=== PATIENT | female | born 1990 | race Two or more races ===

== ENCOUNTER 2025-07-20 10:36 | Inpatient (IN) | payer OTHER ==
[~2025-07-20] VITALS: Ht 149.9 cm; Wt 69.3 kg
--- NOTE | 2025-07-20 11:00 | ED.PDOC ---
History of Present Illness HPI Comments This is a 35-year-old female without any significant past medical history presented to the ED with a chief complaint of right lower quadrant pain and nausea since 5:00 a.m. this morning. The patient states that light lower quadrant pain which is a sharp pain, 8/10, localized, aggravated during sneezing, standing and moving without any relieving factors and associated with nausea and dizziness. She denies fever, chills, shortness of breath, vomiting, dysuria, hematuria or any change in bowel habit. Chief Complaint: Abdominal Pain Time Seen by MD: 10:41 Allergies: Coded Allergies: NO KNOWN ALLERGIES (Unverified , 07/20/25) Information Source: Patient Mode of Arrival: Ambulatory Severity: Moderate Timing: Hours Duration: Since onset Prehospital treatment: None Past Medical History PAST MEDICAL HISTORY: Denies Surgical History: Denies all surgeries POSTING SPECIALIST History: Denies all POSTING SPECIALIST Hx Family History Family History: Reviewed,noncontributory to illness Social History Smoker: Non-Smoker Alcohol: Occasionally Drugs: Denies Drug Use Lives In: Home Constitutional: denies: chills, diaphoresis, fatigue, fever, malaise, sweats, weakness, others EENTM: denies: blurred vision, double vision, ear bleeding, ear discharge, ear drainage, ear pain, ear ringing, eye pain, eye redness, hearing loss, mouth pain, mouth swelling, nasal discharge, nose bleeding, nose congestion, nose pain, photophobia, tearing, throat pain, throat swelling, voice changes, others Respiratory: denies: cough, hemoptysis, orthopnea, SOB at rest, shortness of breath, SOB with excertion, stridor, wheezing, others Cardiovascular: denies: chest pain, dizzy spells, diaphoresis, Dyspnea on exertion, edema, irregular heart beat, left arm pain, lightheadedness, palpitations, PND, syncope, others Gastrointestinal: reports: abdominal pain, nausea; denies: abdomen distended, blood streaked bowels, constipated, diarrhea, dysphagia, difficulty swallowing, hematemesis, melena, poor appetite, poor fluid intake, rectal bleeding, rectal pain, vomiting, others Genitourinary: denies: abnormal vagina bleeding, burning, dyspareunia, dysuria, flank pain, frequency, hematuria, incontinence, pain, , vagina discharge, urgency, others Neurological: reports: dizziness; denies: fainting, headache, left sided numbness, left sided weakness, numbness, paresthesia, pre-existing deficit, right sided numbness, right sided weakness, seizure, speech problems, tingling, tremors, weakness, others Musculoskeletal: denies: back pain, gout, joint pain, joint swelling, muscle pain, muscle stiffness, neck pain, others Integumetry: denies: bruises, change in color, change in hair/nails, dryness, laceration, lesions, lumps, rash, wounds, others Allergic/Immunocompromised: denies: Difficulty Healing, Frequent Infections, Hives, Itching, others Hematologic/Lymphatic: denies: anemia, blood clots, easy bleeding, easy bruising, swollen glands, others Endocrine: denies: excessive hunger, excessive sweating, excessive thirst, excessive urination, flushing, intolerance to cold, intolerance to heat, unexplained weight gain, unexplained weight loss, others Psychiatric: denies: anxiety, bipolar disorder, depression, hopeless, panic disorder, schizophrenia, sleepless, suicidal, others Physical Exam General Appearance: Mild Distress HEENT: Normal ENT Inspection, Pharynx Normal, TMs Normal Neck: Full Range of Motion, Non-Tender, Normal, Normal Inspection Respiratory: Chest Non-Tender, Lungs Clear, No Accessory Muscle Use, No Respiratory Distress, Normal Breath Sounds Cardiovascular: No Edema, No JVD, No Murmur, No Gallop, Normal Peripheral Pulses, Regular Rate/Rhythm Breast Exam: Deferred Gastrointestinal: Guarding, No Organomegaly, No Pulsatile Mass, Normal Bowel Sounds, RLQ, Tenderness Genitalia: Deferred Pelvic: Deferred Rectal: Deferred Extremities: No calf tenderness, Normal capillary refill, Normal inspection, Normal range of motion, Non-tender, No pedal edema Neurologic: Alert, hospital medical assistant II-XII nml as Tested, No Motor Deficits, Normal Affect, Normal Mood, No Sensory Deficits Cerebellar Function: NOT DONE Reflexes: NOT DONE Skin: NOT DONE Peripheral Pulses: 2+ carotid (R), 2+ carotid (L), 2+ femoral (R), 2+ femoral (L), 2+ dorsalis pedis (R), 2+ dorsalis pedis (L), 2+ Radial (R), 2+ Radial (L), 2+ Brachial (R), 2+ Brachial (L) Lymphatic: NOT DONE Was a procedure done? Was a procedure done?: No Differential Dx Considerations may include: Appendicitis, gastroenteritis, diverticulitis, IBS, ovarian torsion, salpingitis, PID X-Ray, Labs, Meds, VS Vital Signs Date Time Temp Pulse Resp B/P (MAP) Pulse Ox O2 Delivery O2 Flow Rate FiO2 07/20/25 14:37 98.2 99 16 122/81 (95) 98 98.2 07/20/25 12:32 76 18 132/64 07/20/25 12:08 97.9 104 18 131/61 (84) 98 97.9 07/20/25 12:08 104 18 98 Room Air 07/20/25 11:51 104 18 131/61 07/20/25 10:38 97.9 104 18 131/61 98 97.9 Lab Test 07/20/25 11:55 07/20/25 10:25 Range/Units Urine Color Yellow Yellow Urine Clarity Turbid H Clear Urine pH 6.0 5.0-9.0 Urine Specific [place] 1.023 1.001-1.035 Urine Protein Trace H Negative Urine Ketones Trace Negative Urine Blood 3+ H Negative /uL Urine Nitrite Negative Negative Urine Bilirubin Negative Negative Urine Urobilinogen Normal Negative mg/dL Urine Leukocyte Esterase Trace Negative /uL Urine RBC 57 0 - 4 /hpf Urine Microscopic WBC 3 0-5 /HPF Urine Squamous Epithelial Cells Mod <5 /hpf Urine Bacteria Few H None Seen /hpf Urine Mucus Few None Seen Urine Glucose Normal Normal mg/dL Urine Test Negative Negative White Blood Count 15.9 H 4.4-10.8 10^3/uL Red Blood Count 4.92 4.0-5.20 10^6/uL Hemoglobin 15.3 12.2-16.2 g/dL Hematocrit 45.3 36.0-46.0 % Mean Corpuscular Volume 92.2 80.0-100.0 fL Mean Corpuscular Hemoglobin 31.1 28.0-32.0 pg Mean Corpuscular Hemoglobin Concent 33.8 32.0-36.0 g/dL Red Cell Distribution Width 12.3 11.8-14.3 % Platelet Count 408 140-450 10^3/uL Mean Platelet Volume 7.3 6.9-10.8 fL Neutrophils (%) (Auto) 77.7 37.0-80.0 % Lymphocytes (%) (Auto) 14.2 10.0-50.0 % Monocytes (%) (Auto) 7.2 0.0-12.0 % Eosinophils (%) (Auto) 0.6 0.0-7.0 % Basophils (%) (Auto) 0.3 0.0-2.0 % Neutrophils # (Auto) 12.3 H 1.6-8.6 10 ^3/uL Lymphocytes # (Auto) 2.3 0.4-5.4 10 ^3/uL Monocytes # (Auto) 1.1 0-1.3 10 ^3/uL Eosinophils # (Auto) 0.1 0-0.8 10 ^3/uL Basophils # (Auto) 0.1 0-0.2 10 ^3/uL Nucleated Red Blood Cells 0.1 % Sodium Level 137 136-145 mmol/L Potassium Level 3.7 3.5-5.1 mmol/L Chloride Level 101 98-107 mmol/L Carbon Dioxide Level 27 20-31 mmol/L Anion Gap 9 5-15 Blood Urea Nitrogen < 5 L 9-23 mg/dL Creatinine 0.84 0.550-1.02 mg/dL Glomerular Filtration Rate Calc 93 >90 mL/min BUN/Creatinine Ratio 6.0 L 10.0-20.0 Serum Glucose 97 74-106 mg/dL Calcium Level 9.5 8.7-10.4 mg/dL Total Bilirubin 0.7 0.2-1.0 mg/dL Aspartate Amino Transferase (AST) 20 13-40 U/L Alanine Aminotransferase (ALT) 28 7-40 U/L Alkaline Phosphatase 58 46-116 U/L Total Protein 8.0 5.7-8.2 g/dL Albumin 4.8 3.2-4.8 g/dL Lipase 32 12-53 U/L Current Medications Medications (Trade) Dose Ordered Sig/Seamus Route Start Time Stop Time Status Last Admin Morphine Sulfate 2 mg ONCE ONCE IV 07/20/25 11:00 07/20/25 11:02 DC 07/20/25 11:51 Sodium Chloride 1,000 ml @ 125 mls/hr Q8H ONCE IV 07/20/25 14:45 07/20/25 22:44 07/20/25 15:19 Ceftriaxone Sodium 50 ml @ 100 mls/hr ONCE ONCE IV 07/20/25 14:45 07/20/25 15:14 DC 07/20/25 15:19 X-Ray, Labs, Meds, VS Comment Exam: CT CT AB PEL WO CON-NO ORAL OR IV History: Right lower quadrant pain Comparison Study: None TECHNIQUE: Multidetector CT of the abdomen was performed from lung bases to pubic symphysis. Imaging was performed without IV contrast. Axial, coronal and sagittal multiplanar reformats were obtained from the axial data set by the technologist. Radiation Dose Information: CT Dose: CTDI volume is 7.28 mGy. Dose-length product is 347.71 mGy*cm FINDINGS: Evaluation of solid organs is limited due to lack of intravenous contrast use. Findings: Lung Bases: No acute or significant lung base finding. Normal heart size. No pleural or pericardial effusion. Liver: The liver is normal in size. No focal lesions. Hepatic steatosis. Gallbladder and Biliary Tree: Unremarkable Spleen: Unremarkable Pancreas: The pancreas is grossly normal in appearance. Adrenal Glands: Unremarkable Kidneys: Kidneys are grossly normal without calculi or hydronephrosis. Bladder: Grossly unremarkable for degree of distention. Bowel: The stomach is grossly normal in appearance. Small bowel and colon are normal in caliber and distribution. The appendix is 13 mm with periappendiceal inflammatory changes findings consistent with appendicitis. Appendix visualized series 2 images 49-53. Ascites: Absent Lymphadenopathy: No mesenteric, retroperitoneal or periportal lymphadenopathy. Abdominal Wall and Mesentery: Unremarkable. Vasculature: The visualized abdominal aorta is normal in size and caliber. Evaluation of abdominal and pelvic vessels is limited due to lack of intravenous contrast. Pelvic Organs: Unremarkable Musculoskeletal: No aggressive focal bony lesions, acute fractures or dislocati on. Soft tissues: Unremarkable IMPRESSION: 1. Findings worrisome for appendicitis. 2. Inflammatory changes; no free air 3. Hepatic steatosis CRITICAL FINDINGS Critical Result: APPENDICITIS Images Reviewed?: Images reviewed and evaluated by me Time of 1ST Reevaluation: 14:52 Reevaluation 1ST: Improved Patient Education/Counseling: Diagnosis, Treatment, Prognosis, Need For Follow Up Family Education/Counseling: Diagnosis, Treatment, Prognosis, Need For Follow Up Comments I, Arielle Huggins MD, attest that I was present and participated in the critical and casillas portions of the exam and agree with the resident physician's findings and treatment plan Patient has a appendicitis shown on CAT scan. She will be admitted to the hospital surgery will be consulted #[id number] Dr Jesus from [facility] called and provided the authorization SEPSIS Sepsis Screen Date sepsis recognized/suspect: Jul 20, 2025 Time Sepsis recognized/suspect: 1039 Recent Procedure: No On Antibiotic Therapy: No Respiratory Rate >20: No Heart Rate >90: Yes Temp<36 C (96.8 F) or >38.3 C: No SBP <90 or MAP <65 mmHG: No New Acute Mental Status Change: No Is the patient on CPAP, BIPAP,: No Physician Orders Ct Ab Pel Wo Con-No Oral Or Iv (07/20/25 10:49) Sodium Chloride 0.9% (07/20/25 14:45) * Surgical Consult (07/20/25 ) PTPTT (07/20/25 15:04) Obtain Consent For: (07/20/25 15:04) Type And Screen (07/20/25 15:05) Npo (Nothing By Mouth) Diet (07/20/25 Dinner) D5w/Sod Chl 0.45%/Kcl 20meq (07/20/25 15:15) Vital Signs Date Time Temp Pulse Resp B/P (MAP) Pulse Ox O2 Delivery O2 Flow Rate FiO2 07/20/25 14:37 98.2 99 16 122/81 (95) 98 98.2 07/20/25 12:32 76 18 132/64 07/20/25 12:08 97.9 104 18 131/61 (84) 98 97.9 07/20/25 12:08 104 18 98 Room Air 07/20/25 11:51 104 18 131/61 07/20/25 10:38 97.9 104 18 131/61 98 97.9 Laboratory Tests Test 07/20/25 10:25 White Blood Count 15.9 10^3/uL (4.4-10.8) H Medications Medications Dose Ordered Sig/Seamus Route Start Time Stop Time Status Last Admin Dose Admin Ceftriaxone Sodium 50 ml @ 100 mls/hr ONCE ONCE IV 07/20/25 14:45 07/20/25 15:14 DC 07/20/25 15:19 Morphine Sulfate 2 mg ONCE ONCE IV 07/20/25 11:00 07/20/25 11:02 DC 07/20/25 11:51 Sodium Chloride 1,000 ml @ 125 mls/hr Q8H ONCE IV 07/20/25 14:45 07/20/25 22:44 07/20/25 15:19 Departure 1 Departure Time of Disposition: 14:34 Impression: Primary Impression: Appendicitis Qualified Codes: K35.30 - Acute appendicitis with localized peritonitis, without perforation or gangrene Disposition: ADMITTED INPATIENT Admit to: Med Surg Condition: Serious Critical Care Note Critical Care Time?: Yes (45 min-critical care time only) Critical care comment: Due to concerns for patients condition deteriorating, the care required my highest level of attention and readiness to intervene. I assessed the patient, reviewed the medical records, ordered the appropriate tests and treatments, then reassessed for results and responsiveness. I communicated with medical personnel and consultants and formulated a plan of care. Total critical care time excludes any procedures Stability Stability form required: DEEPAK Shetty RESIDENT Jul 20, 2025 11:00 ARIELLE HUGGINS MD Jul 20, 2025 14:35
[2025-07-20 11:27] LABS: Hematocrit 45.3 % (36.0-46.0); Hemoglobin 15.3 g/dL (12.2-16.2); Mean Corpuscular Hemoglobin 31.1 pg (28.0-32.0); Mean Corpuscular Volume 92.2 fL (80.0-100.0); Nucleated Red Blood Cells % 0.1 %
[2025-07-20 11:37] LABS: Alanine Aminotransferase 28 U/L (7-40); Alkaline Phosphatase 58 U/L (46-116); Anion Gap 9 (5-15); Calcium 9.5 mg/dL (8.7-10.4); Carbon Dioxide 27 mmol/L (20-31); Chloride 101 mmol/L (98-107); Glucose 97 mg/dL (74-106); Lipase 32 U/L (12-53); Potassium 3.7 mmol/L (3.5-5.1); Sodium 137 mmol/L (136-145); Total Protein 8.0 g/dL (5.7-8.2)
[2025-07-20 11:38] LABS: Albumin 4.8 g/dL (3.2-4.8); BUN/Creatinine Ratio 6.0 (10.0-20.0); Bilirubin, Total 0.7 mg/dL (0.2-1.0); Blood Urea Nitrogen < 5 mg/dL (9-23)
[2025-07-20] MEDS: MORPHINE SULFATE INJ 2 MG/ml SYRG IV ONE (11:51)
[2025-07-20 13:31] LABS: Urine Protein, UAD TRACE (Negative)
--- NOTE | 2025-07-20 14:33 | DVH ---
Exam: CT CT AB PEL WO CON-NO ORAL OR IV History: Right lower quadrant pain Comparison Study: None TECHNIQUE: Multidetector CT of the abdomen was performed from lung bases to pubic symphysis. Imaging was performed without IV contrast. Axial, coronal and sagittal multiplanar reformats were obtained fr om the axial data set by the technologist. Radiation Dose Information: CT Dose: CTDI volume is 7.28 mGy. Dose-length product is 347.71 mGy*cm FINDINGS: Evaluation of solid organs is limited due to lack of intravenous contrast use. Findings: Lung Bases: No acute or significant lung base finding. Normal heart size. No pleural or pericardial effusion. Liver: The liver is normal in size. No focal lesions. Hepatic steatosis. Gallbladder and Biliary Tree: Unremarkable Spleen: Unremarkable Pancreas: The pancreas is grossly normal in appearance. Adrenal Glands: Unremarkable Kidneys: Kidneys are grossly normal without calculi or hydronephrosis. Bladder: Grossly unremarkable for degree of distention. Bowel: The stomach is grossly normal in appearance. Small bowel and colon are normal in caliber and d istribution. The appendix is 13 mm with periappendiceal inflammatory changes findings consistent wit h appendicitis. Appendix visualized series 2 images 49-53. Ascites: Absent Lymphadenopathy: No mesenteric, retroperitoneal or periportal lymphadenopathy. Abdominal Wall and Mesentery: Unremarkable. Vasculature: The visualized abdominal aorta is normal in size and caliber. Evaluation of abdominal a nd pelvic vessels is limited due to lack of intravenous contrast. Pelvic Organs: Unremarkable Musculoskeletal: No aggressive focal bony lesions, acute fractures or dislocation. Soft tissues: Unremarkable IMPRESSION: 1. Findings worrisome for appendicitis. 2. Inflammatory changes; no free air 3. Hepatic steatosis CRITICAL FINDINGS Critical Result: APPENDICITIS Findings discussed with DEEPAK Fowler at 07/20/2025 02:27 PM, and acknowledged receipt and under standing of the findings. Radiation optimization: All CT scans at this facility use at least one of these dose optimization silver hniques: automated exposure control mA and/or kV adjustment per patient size (includes targeted exam s where dose is matched to clinical indication) or iterative reconstruction.
--- NOTE | 2025-07-20 15:12 | DVHHP2 ---
Admitting Diagnosis: abdominal pain History of Present Illness This is a 35-year-old female without any significant past medical history presented to the ED with a chief complaint of right lower quadrant pain and nausea since 5:00 a.m. this morning. The patient states that light lower quadrant pain which is a sharp pain, 8/10, localized, aggravated during sneezing, standing and moving without any relieving factors and associated with nausea and dizziness. She denies fever, chills, shortness of breath, vomiting, dysuria, hematuria or any change in bowel habit. 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 woman, sitting on chair, mod distress heent; at/nc heart: rrr Lung: CTA b/l abd: soft, tender right upper quadrant, non-distended Msk: no edema or cyanosis neuro: AOx3, no focal deficit SEPSIS Sepsis Screen Date sepsis recognized/suspect: Jul 20, 2025 Time Sepsis recognized/suspect: 1039 Recent Procedure: No On Antibiotic Therapy: No Respiratory Rate >20: No Heart Rate >90: Yes Temp<36 C (96.8 F) or >38.3 C: No SBP <90 or MAP <65 mmHG: No New Acute Mental Status Change: No Is the patient on CPAP, BIPAP,: No Physician Orders Ct Ab Pel Wo Con-No Oral Or Iv (07/20/25 10:49) Sodium Chloride 0.9% (07/20/25 14:45) * Surgical Consult (07/20/25 ) Obtain Consent For: (07/20/25 15:04) Npo (Nothing By Mouth) Diet (07/20/25 Dinner) D5w/Sod Chl 0.45%/Kcl 20meq (07/20/25 15:15) Imaging Transfer Request (07/20/25 17:12) Admit (07/20/25 17:47) Code Status (07/20/25 17:47) Vital Signs .PER UNIT PROTOCOL (07/20/25 17:47) Review Orders With Adm. (07/20/25 17:47) Encourage Activity As Tolerate (07/20/25 17:47) Sodium Chloride Lock (Saline Lock Ns) (07/20/25 22:00) Docusate Sodium Capsule (Colace Capsule) (07/20/25 18:00) Acetaminophen Tablet (Tylenol Tablet) (07/20/25 18:00) Notify Md Of Changes From Base (07/20/25 17:47) Advance Directive (07/20/25 17:47) Patient Condition (07/20/25 17:47) Allergies (07/20/25 17:47) Hydrocodone-Acet 5/325mg Tab ([place] 5/32 (07/20/25 18:00) Ondansetron Hcl (Zofran) (07/20/25 18:00) Morphine Sulfate Injection (07/20/25 18:00) Lactated Ringer's (07/20/25 18:00) Comprehensive Metabolic Panel (07/21/25 05:00) Comprehensive Metabolic Panel (07/22/25 05:00) Comprehensive Metabolic Panel (07/23/25 05:00) Comprehensive Metabolic Panel (07/24/25 05:00) Comprehensive Metabolic Panel (07/25/25 05:00) Complete Blood Count (07/21/25 05:00) Complete Blood Count (07/22/25 05:00) Complete Blood Count (07/23/25 05:00) Complete Blood Count (07/24/25 05:00) Complete Blood Count (07/25/25 05:00) Ceftriaxone Ivpb Rocephin (07/21/25 09:00) Metronidazole Ivpb Flagyl (07/20/25 22:00) Vital Signs Date Time Temp Pulse Resp B/P (MAP) Pulse Ox O2 Delivery O2 Flow Rate FiO2 07/20/25 17:26 81 19 97 Room Air* 0 21 07/20/25 16:54 73 16 134/89 (104) 98 07/20/25 14:37 98.2 99 16 122/81 (95) 98 98.2 07/20/25 12:32 76 18 132/64 07/20/25 12:08 97.9 104 18 131/61 (84) 98 97.9 07/20/25 12:08 104 18 98 Room Air 07/20/25 11:51 104 18 131/61 07/20/25 10:38 97.9 104 18 131/61 98 97.9 Laboratory Tests Test 07/20/25 10:25 White Blood Count 15.9 10^3/uL (4.4-10.8) H Medications Medications Dose Ordered Sig/Seamus Route Start Time Stop Time Status Last Admin Dose Admin Ceftriaxone Sodium 50 ml @ 100 mls/hr ONCE ONCE IV 07/20/25 14:45 07/20/25 15:14 DC 07/20/25 15:19 Morphine Sulfate 2 mg ONCE ONCE IV 07/20/25 11:00 07/20/25 11:02 DC 07/20/25 11:51 Sodium Chloride 1,000 ml @ 125 mls/hr Q8H ONCE IV 07/20/25 14:45 07/20/25 22:44 07/20/25 15:19 Results Labs Test 07/20/25 15:39 07/20/25 11:55 07/20/25 10:25 Range/Units Prothrombin Time 10.3 9.3-11.8 sec Prothrombin Time INR 0.97 0.9-1.15 Activated Partial Thromboplast Time 26.3 24.5-34.5 SEC Urine Color Yellow Yellow Urine Clarity Turbid H Clear Urine pH 6.0 5.0-9.0 Urine Specific [place] 1.023 1.001-1.035 Urine Protein Trace H Negative Urine Ketones Trace Negative Urine Blood 3+ H Negative /uL Urine Nitrite Negative Negative Urine Bilirubin Negative Negative Urine Urobilinogen Normal Negative mg/dL Urine Leukocyte Esterase Trace Negative /uL Urine RBC 57 0 - 4 /hpf Urine Microscopic WBC 3 0-5 /HPF Urine Squamous Epithelial Cells Mod <5 /hpf Urine Bacteria Few H None Seen /hpf Urine Mucus Few None Seen Urine Glucose Normal Normal mg/dL Urine Test Negative Negative White Blood Count 15.9 H 4.4-10.8 10^3/uL Red Blood Count 4.92 4.0-5.20 10^6/uL Hemoglobin 15.3 12.2-16.2 g/dL Hematocrit 45.3 36.0-46.0 % Mean Corpuscular Volume 92.2 80.0-100.0 fL Mean Corpuscular Hemoglobin 31.1 28.0-32.0 pg Mean Corpuscular Hemoglobin Concent 33.8 32.0-36.0 g/dL Red Cell Distribution Width 12.3 11.8-14.3 % Platelet Count 408 140-450 10^3/uL Mean Platelet Volume 7.3 6.9-10.8 fL Neutrophils (%) (Auto) 77.7 37.0-80.0 % Lymphocytes (%) (Auto) 14.2 10.0-50.0 % Monocytes (%) (Auto) 7.2 0.0-12.0 % Eosinophils (%) (Auto) 0.6 0.0-7.0 % Basophils (%) (Auto) 0.3 0.0-2.0 % Neutrophils # (Auto) 12.3 H 1.6-8.6 10 ^3/uL Lymphocytes # (Auto) 2.3 0.4-5.4 10 ^3/uL Monocytes # (Auto) 1.1 0-1.3 10 ^3/uL Eosinophils # (Auto) 0.1 0-0.8 10 ^3/uL Basophils # (Auto) 0.1 0-0.2 10 ^3/uL Nucleated Red Blood Cells 0.1 % Sodium Level 137 136-145 mmol/L Potassium Level 3.7 3.5-5.1 mmol/L Chloride Level 101 98-107 mmol/L Carbon Dioxide Level 27 20-31 mmol/L Anion Gap 9 5-15 Blood Urea Nitrogen < 5 L 9-23 mg/dL Creatinine 0.84 0.550-1.02 mg/dL Glomerular Filtration Rate Calc 93 >90 mL/min BUN/Creatinine Ratio 6.0 L 10.0-20.0 Serum Glucose 97 74-106 mg/dL Calcium Level 9.5 8.7-10.4 mg/dL Total Bilirubin 0.7 0.2-1.0 mg/dL Aspartate Amino Transferase (AST) 20 13-40 U/L Alanine Aminotransferase (ALT) 28 7-40 U/L Alkaline Phosphatase 58 46-116 U/L Total Protein 8.0 5.7-8.2 g/dL Albumin 4.8 3.2-4.8 g/dL Lipase 32 12-53 U/L Primary Diagnosis acute appendicitis Plan npo ivf ceftriaxone/flagyl for broad spectrum abx check blood culture surgery consulted in ED. Follow up with recommendation scd for dvt ppx ppi for gi ppx full code Plan discussed with: Patient Problems List: (1) Appendicitis Status: Acute Date of Service: Jul 20, 2025 Billing Provider: CINDY COKER MD Common Visit Codes: [id number] INP/OBS CARE (HIGH) CINDY COKER MD Jul 20, 2025 15:12
[2025-07-20] MEDS: cefTRIAXone 1GM/50ML D5W 50 ML IV ONE (15:19)
[2025-07-20] MEDS: SODIUM CHLORIDE 0.9% 1,000 ML IV ONE (15:19)
[2025-07-20 16:17] LABS: INR 0.97 (0.9-1.15); Partial Thromboplastin Time 26.3 SEC (24.5-34.5); Prothrombin Time 10.3 sec (9.3-11.8)
[2025-07-20 17:26] VITALS: PULSE 81; RESP 19; O2SAT 97
[2025-07-20] MEDS ORDERED: MORPHINE SULFATE INJ 2 MG/ml SYRG IV PRN (18:00)
[2025-07-20] MEDS ORDERED: DOCUSATE SOD 100 MG CAP PO PRN (18:00)
[2025-07-20] MEDS ORDERED: LACTATED RINGER'S 1,000 ML IV ONE (18:00)
[2025-07-20] MEDS: D5W/SOD CHL 0.45%/KCL 20MEQ 1,000 ML IV ONE (19:31)
[2025-07-20] MEDS ORDERED: ACETAMINOPHEN 325 MG TAB PO PRN (20:00)
[2025-07-20] MEDS ORDERED: ONDANSETRON HCL 4 MG/2 ML VIAL IV PRN (20:00)
[2025-07-20] MEDS: ACETAMINOPHEN 325 MG TAB PO PRN (20:45)
[2025-07-20 21:00] VITALS: BP 131/82; PULSE 95; RESP 16; TEMP 98.3; O2SAT 97
[2025-07-20] MEDS: SODIUM CHLOR 0.9% PF (SALINE LOCK) 10ML VIAL/SYR IV SCH (21:32)
[2025-07-21] VITALS (7 sets, daily range): BP systolic 109–118; BP diastolic 74–76; PULSE 98–106; RESP 16–22; TEMP 96.9–98.7; O2SAT 95–98
[2025-07-21] MEDS: HYDROcodone-ACET 5/325MG TAB PO PRN (02:14)
[2025-07-21] MEDS: ceFAZolin 2 GM/D5W50ml 50 ML IV ONE (06:57)
[2025-07-21] MEDS: BUPIVACAINE HCL 0.25% P/F 10 ML VIAL ONE (07:07)
[2025-07-21] MEDS: LIDOCAINE W/ EPINEPHRINE 1% 20ML VIAL ONE (07:07)
[2025-07-21 07:19] LABS: Hematocrit 40.5 % (36.0-46.0); Hemoglobin 13.7 g/dL (12.2-16.2); Mean Corpuscular Hemoglobin 31.3 pg (28.0-32.0); Mean Corpuscular Volume 92.3 fL (80.0-100.0); Nucleated Red Blood Cells % 0.0 %
[2025-07-21 07:22] LABS: Alanine Aminotransferase 21 U/L (7-40); Alkaline Phosphatase 53 U/L (46-116); Anion Gap 10 (5-15); Carbon Dioxide 24 mmol/L (20-31); Chloride 104 mmol/L (98-107); Potassium 3.6 mmol/L (3.5-5.1); Sodium 138 mmol/L (136-145); Total Protein 6.6 g/dL (5.7-8.2)
--- NOTE | 2025-07-21 07:22 | DVHINCON2 ---
Date of service: Jul 21, 2025 Family History: Patient reports no known family medical history. Allergies: Coded Allergies: NO KNOWN ALLERGIES (Unverified , 07/20/25) Home Meds No Active Prescriptions or Reported Meds Current Medications Current Medications Medications (Trade) Dose Ordered Sig/Seamus Route PRN Reason Start Time Stop Time Status Last Admin Sodium Chloride (Saline Lock Ns) 10 ml Q8HR IV 07/20/25 22:00 07/21/25 05:05 Docusate Sodium (Colace Capsule) 100 mg BIDPRN PRN PO FOR CONSTIPATION 07/20/25 18:00 Acetaminophen (Tylenol Tablet) 650 mg Q6HP PRN PO PAIN SCALE 1-3 OR TEMP>100.4 07/20/25 18:00 07/20/25 20:45 Acetaminophen/ Hydrocodone Bitart ([place] 5/325MG Tab) 1 tab Q4HP PRN PO MODERATE PAIN (4-6 PAIN SCALE) 07/20/25 18:00 07/21/25 02:14 Ondansetron HCl (Zofran) 4 mg Q4HP PRN IV NAUSEA / VOMITING 07/20/25 18:00 Morphine Sulfate 2 mg Q4HPRN PRN IV SEVERE PAIN (7-10 PAIN SCALE) 07/20/25 18:00 Ceftriaxone Sodium 50 ml @ 100 mls/hr DAILY@09 IV 07/21/25 09:00 Metronidazole 100 ml @ 100 mls/hr Q8HR IV 07/20/25 22:00 07/21/25 05:05 Acetaminophen (Tylenol Tablet) 650 mg Q8HP PRN PO MILD PAIN (1-3 PAIN SCALE) 07/20/25 20:00 07/20/25 20:03 DC Ondansetron HCl (Zofran) 4 mg Q8HPRN PRN IV NAUSEA / VOMITING 07/20/25 20:00 07/20/25 20:03 DC Vital Signs Vital Signs Date Time Temp Pulse Resp B/P (MAP) Pulse Ox O2 Delivery O2 Flow Rate FiO2 07/21/25 05:00 97.5 98 18 109/74 (86) 97 97.5 07/21/25 02:03 Room Air* 0 21 Labs/Diagnostic Data Labs Test 07/21/25 05:25 07/20/25 15:39 07/20/25 11:55 8/20/25 10:25 Range/Units Prothrombin Time 10.3 9.3-11.8 sec Prothrombin Time INR 0.97 0.9-1.15 Activated Partial Thromboplast Time 26.3 24.5-34.5 SEC Urine Color Yellow Yellow Urine Clarity Turbid H Clear Urine pH 6.0 5.0-9.0 Urine Specific [place] 1.023 1.001-1.035 Urine Protein Trace H Negative Urine Ketones Trace Negative Urine Blood 3+ H Negative /uL Urine Nitrite Negative Negative Urine Bilirubin Negative Negative Urine Urobilinogen Normal Negative mg/dL Urine Leukocyte Esterase Trace Negative /uL Urine RBC 57 0 - 4 /hpf Urine Microscopic WBC 3 0-5 /HPF Urine Squamous Epithelial Cells Mod <5 /hpf Urine Bacteria Few H None Seen /hpf Urine Mucus Few None Seen Urine Glucose Normal Normal mg/dL Urine Test Negative Negative Eosinophils (%) (Auto) 0.6 0.0-7.0 % Eosinophils # (Auto) 0.1 0-0.8 10 ^3/uL Basophils # (Auto) 0.1 0-0.2 10 ^3/uL Nucleated Red Blood Cells 0.1 % Lipase 32 12-53 U/L Assessment 35 YEAR OLD FEMALE WITH 3 DAY HISTORY OF INCREASING ABDOMINAL PAIN AND NAUSEA, NO PRIOR OPERATIONS, NON SMOKER, OCCASIONAL ETOH, NO DRUGS, NO ALLERGIES, ABDOMEN TENDER IN RIGHT LOWER QUADRANT WITH REBOUND TENDERNESS AND GUARDING.WBC ELEVATED, DX: APPENDICITIS. LAPAROSCOPIC POSSIBLY OPEN APPENDECTOMY,RISKS AND COMPLICATIONS EXPLAINED, AT BEDSIDE, ALL QUESTIONS ANSWERED Plan discussed with: Patient, Spouse TORY WESLEY MD Jul 21, 2025 07:22
[2025-07-21] MEDS ORDERED: MIDAZOLAM HCL 2MG/2ML 2ml VIAL (1mg/ml) ONE (07:23)
[2025-07-21] MEDS ORDERED: ROCURONIUM 10MG/ML 10ML VIAL IV ONE (07:23)
[2025-07-21] MEDS ORDERED: GLYCOPYRROLATE 0.2 MG/ML 1ML VIAL ONE (07:23)
[2025-07-21] MEDS ORDERED: fentaNYL CITRATE 100 MCG/2 ML VL ONE ×2 (07:23→08:09)
[2025-07-21] MEDS ORDERED: ONDANSETRON HCL 4 MG/2 ML VIAL ONE (07:23)
[2025-07-21] MEDS ORDERED: KETOROLAC TROMETH 30 MG/ML 1ML VIAL ONE (07:23)
[2025-07-21] MEDS ORDERED: HYDROmorphone HCL 2 MG/ML VL/or syr ONE (07:23)
[2025-07-21] MEDS ORDERED: LIDOCAINE 2% (LOCAL ANESTH.) PF 5ml SDV ONE (07:23)
[2025-07-21 07:24] LABS: Albumin 3.9 g/dL (3.2-4.8); BUN/Creatinine Ratio 7.7 (10.0-20.0); Bilirubin, Total 0.8 mg/dL (0.2-1.0); Blood Urea Nitrogen < 5 mg/dL (9-23); Calcium 8.5 mg/dL (8.7-10.4); Glucose 112 mg/dL (74-106)
[2025-07-21] MEDS ORDERED: KETAMINE 50mg/ML 1ml syringe ONE (08:03)
[2025-07-21] MEDS ORDERED: SUGAMMADEX 200mg/2ml Vial (100MG/ML) IV ONE (08:15)
--- NOTE | 2025-07-21 08:52 | DVHOP ---
DATE OF SURGERY: 07/21/2025 PREOPERATIVE DIAGNOSIS: Appendicitis. POSTOPERATIVE DIAGNOSIS: Appendicitis. SURGEON: Doug Hernandez MD TOOL CRIB SUPERVISOR: Joe Padilla. ANESTHESIA: General endotracheal, Dr. Villafana. PROCEDURES: Laparoscopy, laparoscopic appendectomy. DESCRIPTION OF PROCEDURE: Under general endotracheal anesthesia with the patient's skin prepped and draped, a supraumbilical incision was made and Veress needle inserted by the hanging drop technique to establish pneumoperitoneum to 15 mmHg pressure by insufflation with carbon dioxide. With the abdomen fully distended, the needle was removed and replaced with a 5 mm trocar port through which a 0-degree viewing laparoscope was inserted and under direct vision, 5 and 10 mm ports inserted through the midline in the mid abdomen and infraumbilical skin. Instrumentation was introduced and laparoscopy was performed, revealing no obvious unexpected pathology. The appendix was acutely inflamed, adherent to the lateral abdominal wall and was grasped with a Franci forceps, placed on slight tension to trace it to the confluence with the cecum. At the base, the appendix and mesoappendix were divided with the Endo-DOREEN stapler equipped with vascular martha. A small amount of bleeding from the appendiceal artery was evident and controlled with Hemoclip. At the base of the appendix at the confluence with the cecum, there was a small amount of purulence, which was evacuated and submitted for culture and sensitivity. The abdomen was then inspected for hemostasis, which was found to be complete at the appendicectomy site as well as at the port sites. A 10-mm Marcio Johnson drain was placed into the right lateral pericolic gutter and exteriorized through the 5 mm port site in the supraumbilical position, secured with a 2-0 nylon suture. Abdomen was irrigated. Irrigant was aspirated. Hemostasis was once more assured. Instrumentation was withdrawn. Pneumoperitoneum was evacuated. Fascial defect closed using 0 Vicryl. Wounds approximated using 3-0 Monocryl sutures, Dermabond glue and Steri-Strips. The patient remained stable throughout the operation and left the operating room following an accurate needle and sponge count. Her , Declan, was thoroughly informed at [phone]. Doug Hernandez MD PF/SAY TID: [id number] RECEIPT: [id number]
[2025-07-21] MEDS ORDERED: HYDROmorphone HCL 2 MG/ML VL/or syr IV PRN (09:00)
[2025-07-21] MEDS ORDERED: ONDANSETRON HCL 4 MG/2 ML VIAL IV PRN (09:00)
--- NOTE | 2025-07-21 10:07 | DVHPN2 ---
Progress Note Date Seen: Jul 21, 2025 Medical Necessity Reason Pt with a Central, PICC or Fol: No Subjective Patient reports: No new complaints Review of Systems: HEENT:Normal, CVS:Normal, RESPIRATORY:Normal, GI:Normal, :Normal, MSK:Normal, NEURO:Normal Objective vital signs Vital Sign Date Time Temp Pulse Resp B/P (MAP) Pulse Ox O2 Delivery O2 Flow Rate FiO2 07/21/25 09:15 123 16 136/80 (98) 96 07/21/25 08:57 Room Air 95 07/21/25 08:46 10.0 07/21/25 08:46 97.7 97.7 Total Intake and Output 07/20/25 07/20/25 07/21/25 15:00 23:00 07:00 Intake Total 50 ml 100 ml Output Total 0 ml Balance 50 ml 100 ml medications Current Medications Medications Dose Ordered Sig/Seamus Route Start Time Stop Time Status Last Admin Dose Admin Sodium Chloride 10 ml Q8HR IV 07/20/25 22:00 07/21/25 05:05 10 ML Docusate Sodium 100 mg BIDPRN PRN PO 07/20/25 18:00 Acetaminophen 650 mg Q6HP PRN PO 07/20/25 18:00 07/20/25 20:45 650 MG Acetaminophen/ Hydrocodone Bitart 1 tab Q4HP PRN PO 07/20/25 18:00 07/21/25 02:14 1 TAB Ondansetron HCl 4 mg Q4HP PRN IV 07/20/25 18:00 Morphine Sulfate 2 mg Q4HPRN PRN IV 07/20/25 18:00 Ceftriaxone Sodium 50 ml @ 100 mls/hr DAILY@09 IV 07/21/25 09:00 Metronidazole 100 ml @ 100 mls/hr Q8HR IV 07/20/25 22:00 07/21/25 05:05 100 MLS/HR Potassium Chloride/Dextrose/ Sod Cl 1,000 ml @ 100 mls/hr Q10H IV 07/21/25 08:30 Examination: GENERAL:Normal, HEENT:Normal, NECK:Normal, LUNGS:Normal, CVS:Normal, ABDOMEN:Normal, MSK:Normal, SKIN:Normal, NEURO:Normal, :Normal laboratory and microbiology Laboratory Tests 07/21/25 05:25 Test 07/21/25 05:25 Range/Units Serum Glucose 112 H 74-106 mg/dL Problem List/Assessment/Plan Problem List/Assessment/Plan #1 acute appy with sepsis: s/p surg, ivf, iv antibiotic, pain meds Plan discussed with: Patient My Orders My Orders Orders - RODRICK BRAVO MD Procedure Category Date Status Time Basic Metabolic Panel LAB 07/22/25 Verified 06:00 Complete Blood Count LAB 07/22/25 Verified 06:00 Date of Service: Jul 21, 2025 Billing Provider: RODRICK BRAVO MD Common Visit Codes: [id number] INP/OBS CARE(HIGH) RODRICK BRAVO MD Jul 21, 2025 10:07
[2025-07-21] MEDS: cefTRIAXone 1GM/50ML D5W 50 ML IV SCH (10:15)
[2025-07-21] MEDS: D5W/SOD CHL 0.45%/KCL 20MEQ 1,000 ML IV SCH (10:54)
[2025-07-21] MEDS: ONDANSETRON HCL 4 MG/2 ML VIAL IV PRN (16:19)
[2025-07-22 01:00] VITALS: BP 96/63; PULSE 91; RESP 18; TEMP 97.9; O2SAT 97
[2025-07-22 05:00] VITALS: BP 106/69; PULSE 95; RESP 18; TEMP 97.7; O2SAT 97
[2025-07-22 06:53] LABS: Hematocrit 37.4 % (36.0-46.0); Hemoglobin 12.5 g/dL (12.2-16.2); Mean Corpuscular Hemoglobin 31.5 pg (28.0-32.0); Mean Corpuscular Volume 93.8 fL (80.0-100.0); Nucleated Red Blood Cells % 0.0 %
[2025-07-22 06:55] LABS: Chloride 107 mmol/L (98-107); Potassium 3.8 mmol/L (3.5-5.1); Sodium 140 mmol/L (136-145)
[2025-07-22 06:56] LABS: Anion Gap 10 (5-15); Carbon Dioxide 23 mmol/L (20-31)
[2025-07-22 07:02] LABS: BUN/Creatinine Ratio 7.6 (10.0-20.0); Blood Urea Nitrogen < 5 mg/dL (9-23); Calcium 8.7 mg/dL (8.7-10.4); Glucose 132 mg/dL (74-106)
--- NOTE | 2025-07-22 08:26 | DVHPN2 ---
Assessment/Plan Assessment/Plan Progress note 35 yo f admitted for acute appendicitis. surgery consulted. POD 1 s/p lap appy, stable to transfer, plan for dc once cleared by surgery, tolerating oral physical exam aox4 PERLLA MMM clear breath sounds s1 s2 rrr abdomen soft, appropriately tender no le edema labs ekg imaging reviewed assessment and plan acute appendicitis s/p lap appy obesity pending surg clearance c/w iv abx advance diet as tolerated lifestyle mod incentive spirometry ambulation diet clear dvt ppx ambulation full code Plan discussed with: Patient Date of Service: Jul 22, 2025 Billing Provider: URIEL ARGUETA MD Common Visit Codes: [id number] INP/OBS CARE(HIGH) URIEL ARGUETA MD Jul 22, 2025 08:26
[2025-07-22 08:55] VITALS: BP 117/79; PULSE 96; RESP 16; TEMP 98.5; O2SAT 97
[2025-07-22 13:00] VITALS: BP 120/84; PULSE 94; RESP 18; TEMP 98.3; O2SAT 96
--- NOTE | 2025-07-22 14:05 | DVHPN2 ---
Subjective Date Seen: Jul 22, 2025 Post op day Post op day: 1 Patient reports: No new complaints Nursing reports: No new complaints General: Normal HNT: Normal Cardiovascular: Normal Respiratory: Normal Gastrointestinal: Normal Genitourinary: Normal Musculoskeletal: Normal Neurological: Normal Objective Vitals Vital Sign Date Time Temp Pulse Resp B/P (MAP) Pulse Ox O2 Delivery O2 Flow Rate FiO2 07/22/25 13:00 98.3 94 18 120/84 (96) 96 98.3 07/21/25 20:00 Room Air* 0 21 Total Intake and Output 07/21/25 07/21/25 07/22/25 15:00 23:00 07:00 Intake Total 100 ml 1440 ml 625 ml Output Total 60 ml 50 ml Balance 40 ml 1440 ml 575 ml Medications Current Medications Medications Dose Ordered Sig/Seamus Route Start Time Stop Time Status Last Admin Dose Admin Sodium Chloride 10 ml Q8HR IV 07/20/25 22:00 07/22/25 06:31 10 ML Docusate Sodium 100 mg BIDPRN PRN PO 07/20/25 18:00 Acetaminophen 650 mg Q6HP PRN PO 07/20/25 18:00 07/21/25 18:20 650 MG Acetaminophen/ Hydrocodone Bitart 1 tab Q4HP PRN PO 07/20/25 18:00 07/22/25 09:31 1 TAB Ondansetron HCl 4 mg Q4HP PRN IV 07/20/25 18:00 07/21/25 16:19 4 MG Morphine Sulfate 2 mg Q4HPRN PRN IV 07/20/25 18:00 Ceftriaxone Sodium 50 ml @ 100 mls/hr DAILY@09 IV 07/21/25 09:00 07/22/25 10:51 100 MLS/HR Metronidazole 100 ml @ 100 mls/hr Q8HR IV 07/20/25 22:00 07/22/25 06:26 100 MLS/HR Potassium Chloride/Dextrose/ Sod Cl 1,000 ml @ 100 mls/hr Q10H IV 07/21/25 08:30 07/21/25 10:54 100 MLS/HR General: Normal, Well developed Head/Eyes: Normal ENT: Normal Neck: Normal Lungs: Normal, Normal inspection Cardiovascular: Normal, Regular rate and rhythm Abdominal: Normal, Soft Musculoskeletal: Normal Extremities: Normal Skin: Normal Neurological: Normal Labs and Microbiology Laboratory Tests 07/22/25 05:54 Test 07/22/25 05:54 Range/Units Serum Glucose 132 H 74-106 mg/dL Ass/Plan Problem List #1 acute appy with sepsis: s/p surg, ivf, iv antibiotic, pain meds Assessment/Plan S/P LAPAROSCOPIC APPENDECTOMY POD#1 NO NEW COMPLAINTS ABDOMEN SOFT, NON DISTENDED, APPROPRIATELY TENDER TOLERATING DIET, DENIES NAUSEA OR VOMITING PASSING GAS LABS AND NOTES REVIEWED PLAN: ADVANCE DIET TOLERATED OK TO DISCHARGE PER SURGERY POINT OF VIEW SEND HOME WITH ANTIBIOTICS PATIENT TO FOLLOW UP THIS FRIDAY IN SURGERY CLINIC EMPTY LAYLA DRAIN DAILY MAY SHOWER IN 48 HOURS WOUNDS CAN REMAIN OPEN TO AIR ABDOMINAL BINDER USE NEEDED FOR COMFORT Plan discussed with PATIENT, DR. WESLEY Visit Coding Surgery Date of Service if different f: Jul 22, 2025 Billing Provider: TORY WESLEY MD Surgery Visit Codes: [id number] INP/OBS CARE(HIGH) VICKY SIMS STROBOSCOPE OPERATOR Jul 22, 2025 14:05
[2025-07-22 16:37] VITALS: BP 127/77; PULSE 94; RESP 18; TEMP 99.9; O2SAT 97
[2025-07-22] MEDS: ACETAMINOPHEN IV 1000 MG/100ML (10MG/ML) IV ONE (20:56)
[2025-07-22 21:00] VITALS: BP 123/86; PULSE 93; RESP 17; TEMP 97.6; O2SAT 97
[2025-07-23 01:00] VITALS: BP 122/83; PULSE 89; RESP 17; TEMP 97.5; O2SAT 96
[2025-07-23 05:00] VITALS: BP 118/82; PULSE 77; RESP 17; TEMP 97.5; O2SAT 96
[2025-07-23 07:27] LABS: Hematocrit 36.6 % (36.0-46.0); Hemoglobin 12.4 g/dL (12.2-16.2); Mean Corpuscular Hemoglobin 31.6 pg (28.0-32.0); Mean Corpuscular Volume 93.3 fL (80.0-100.0); Nucleated Red Blood Cells % 0.0 %
[2025-07-23 08:14] VITALS: BP 116/82; PULSE 80; RESP 16; TEMP 97.4; O2SAT 97
--- NOTE | 2025-07-23 08:40 | DVHPN2 ---
Progress Note Date Seen: Jul 23, 2025 Medical Necessity Reason Pt with a Central, PICC or Fol: No Objective vital signs Vital Sign Date Time Temp Pulse Resp B/P (MAP) Pulse Ox O2 Delivery O2 Flow Rate FiO2 07/23/25 08:14 97.4 80 16 116/82 (93) 97 97.4 07/23/25 08:00 Room Air* 0 21 Total Intake and Output 07/22/25 07/22/25 07/23/25 15:00 23:00 07:00 Intake Total 1040 ml 580 ml Output Total 60 ml 25 ml Balance 980 ml 555 ml medications Current Medications Medications Dose Ordered Sig/Seamus Route Start Time Stop Time Status Last Admin Dose Admin Sodium Chloride 10 ml Q8HR IV 07/20/25 22:00 07/23/25 05:01 10 ML Docusate Sodium 100 mg BIDPRN PRN PO 07/20/25 18:00 Acetaminophen 650 mg Q6HP PRN PO 07/20/25 18:00 07/21/25 18:20 650 MG Acetaminophen/ Hydrocodone Bitart 1 tab Q4HP PRN PO 07/20/25 18:00 07/23/25 02:01 1 TAB Ondansetron HCl 4 mg Q4HP PRN IV 07/20/25 18:00 07/22/25 21:24 4 MG Morphine Sulfate 2 mg Q4HPRN PRN IV 07/20/25 18:00 Ceftriaxone Sodium 50 ml @ 100 mls/hr DAILY@09 IV 07/21/25 09:00 07/22/25 10:51 100 MLS/HR Metronidazole 100 ml @ 100 mls/hr Q8HR IV 07/20/25 22:00 07/23/25 05:02 100 MLS/HR Potassium Chloride/Dextrose/ Sod Cl 1,000 ml @ 100 mls/hr Q10H IV 07/21/25 08:30 07/22/25 15:33 100 MLS/HR laboratory and microbiology Laboratory Tests 07/23/25 06:09 07/22/25 05:54 Test 07/22/25 05:54 Range/Units Serum Glucose 132 H 74-106 mg/dL Problem List/Assessment/Plan Problem List/Assessment/Plan EE ME IN 10 DAYUS. MAY SHOWER ON FRIDAY Plan discussed with: Patient TORY WESLEY MD Jul 23, 2025 08:40
[2025-07-23] MEDS ORDERED: AUG875T PO (10:40)
--- NOTE | 2025-07-23 10:45 | DVHDS2 ---
Discharge Summary Date of Admission Jul 20, 2025 at 17:50 Date of Discharge: Jul 23, 2025 Admitting Diagnosis Appendicitis. Labs/Diagnostic Data: Laboratory Results Test 07/23/25 06:09 07/22/25 05:54 07/21/25 05:25 07/20/25 15:39 White Blood Count 7.9 10^3/uL (4.4-10.8) Red Blood Count 3.92 10^6/uL (4.0-5.20) Hemoglobin 12.4 g/dL (12.2-16.2) Hematocrit 36.6 % (36.0-46.0) Mean Corpuscular Volume 93.3 fL (80.0-100.0) Mean Corpuscular Hemoglobin 31.6 pg (28.0-32.0) Mean Corpuscular Hemoglobin Concent 33.9 g/dL (32.0-36.0) Red Cell Distribution Width 12.2 % (11.8-14.3) Platelet Count 330 10^3/uL (140-450) Mean Platelet Volume 7.2 fL (6.9-10.8) Neutrophils (%) (Auto) 61.0 % (37.0-80.0) Lymphocytes (%) (Auto) 25.8 % (10.0-50.0) Monocytes (%) (Auto) 9.4 % (0.0-12.0) Eosinophils (%) (Auto) 3.3 % (0.0-7.0) Basophils (%) (Auto) 0.5 % (0.0-2.0) Neutrophils # (Auto) 4.8 10 ^3/uL (1.6-8.6) Lymphocytes # (Auto) 2.0 10 ^3/uL (0.4-5.4) Monocytes # (Auto) 0.7 10 ^3/uL (0-1.3) Eosinophils # (Auto) 0.3 10 ^3/uL (0-0.8) Basophils # (Auto) 0 10 ^3/uL (0-0.2) Nucleated Red Blood Cells 0.0 % Sodium Level 140 mmol/L (136-145) Potassium Level 3.8 mmol/L (3.5-5.1) Chloride Level 107 mmol/L (98-107) Carbon Dioxide Level 23 mmol/L (20-31) Anion Gap 10 (5-15) Blood Urea Nitrogen < 5 mg/dL (9-23) Creatinine 0.66 mg/dL (0.550-1.02) Glomerular Filtration Rate Calc 117 mL/min (>90) BUN/Creatinine Ratio 7.6 (10.0-20.0) Serum Glucose 132 mg/dL (74-106) Calcium Level 8.7 mg/dL (8.7-10.4) Total Bilirubin 0.8 mg/dL (0.2-1.0) Aspartate Amino Transferase (AST) 17 U/L (13-40) Alanine Aminotransferase (ALT) 21 U/L (7-40) Alkaline Phosphatase 53 U/L (46-116) Total Protein 6.6 g/dL (5.7-8.2) Albumin 3.9 g/dL (3.2-4.8) Prothrombin Time 10.3 sec (9.3-11.8) Prothrombin Time INR 0.97 (0.9-1.15) Activated Partial Thromboplast Time 26.3 SEC (24.5-34.5) Test 07/20/25 11:55 07/20/25 10:25 Urine Color Yellow (Yellow) Urine Clarity Turbid (Clear) Urine pH 6.0 (5.0-9.0) Urine Specific [place] 1.023 (1.001-1.035) Urine Protein Trace (Negative) Urine Ketones Trace (Negative) Urine Blood 3+ /uL (Negative) Urine Nitrite Negative (Negative) Urine Bilirubin Negative (Negative) Urine Urobilinogen Normal mg/dL (Negative) Urine Leukocyte Esterase Trace /uL (Negative) Urine RBC 57 /hpf (0 - 4) Urine Microscopic WBC 3 /HPF (0-5) Urine Squamous Epithelial Cells Mod /hpf (<5) Urine Bacteria Few /hpf (None Seen) Urine Mucus Few (None Seen) Urine Glucose Normal mg/dL (Normal) Urine Test Negative (Negative) Lipase 32 U/L (12-53) Other Laboratory Tests 07/23/25 06:09 07/22/25 05:54 Brief Hx & Hospital Course: This is a 35-year-old female without any significant past medical history presented to the ED with a chief complaint of right lower quadrant pain and nausea since 5:00 a.m. this morning. The patient states that light lower quadrant pain which is a sharp pain, 8/10, localized, aggravated during sneezing, standing and moving without any relieving factors and associated with nausea and dizziness. She denies fever, chills, shortness of breath, vomiting, dysuria, hematuria or any change in bowel habit. Patient was admitted for Acute Appendicitis, underwent surgery. See operative report below. Patient will be discharged home with Augmentin, needs to followup in Surgical clinic this week for LAYLA drain removal. Augmentin may cause abdominal discomfort, advised to take with meals. Operations or Procedures DATE OF SURGERY: 07/21/2025 PREOPERATIVE DIAGNOSIS: Appendicitis. POSTOPERATIVE DIAGNOSIS: Appendicitis. SURGEON: Doug Hernandez MD COLD ROLLING SUPERVISOR: Joe Padilla. ANESTHESIA: General endotracheal, Dr. Villafana. PROCEDURES: Laparoscopy, laparoscopic appendectomy. DESCRIPTION OF PROCEDURE: Under general endotracheal anesthesia with the patient's skin prepped and draped, a supraumbilical incision was made and Veress needle inserted by the hanging drop technique to establish pneumoperitoneum to 15 mmHg pressure by insufflation with carbon dioxide. With the abdomen fully distended, the needle was removed and replaced with a 5 mm trocar port through which a 0-degree viewing laparoscope was inserted and under direct vision, 5 and 10 mm ports inserted through the midline in the mid abdomen and infraumbilical skin. Instrumentation was introduced and laparoscopy was performed, revealing no obvious unexpected pathology. The appendix was acutely inflamed, adherent to the lateral abdominal wall and was grasped with a [place] forceps, placed on slight tension to trace it to the confluence with the cecum. At the base, the appendix and mesoappendix were divided with the Endo-DOREEN stapler equipped with vascular martha. A small amount of bleeding from the appendiceal artery was evident and controlled with Hemoclip. At the base of the appendix at the confluence with the cecum, there was a small amount of purulence, which was evacuated and submitted for culture and sensitivity. The abdomen was then inspected for hemostasis, which was found to be complete at the appendicectomy site as well as at the port sites. A 10-mm Marcio Johnson drain was placed into the right lateral pericolic gutter and exteriorized through the 5 mm port site in the supraumbilical position, secured with a 2-0 nylon suture. Abdomen was irrigated. Irrigant was aspirated. Hemostasis was once more assured. Instrumentation was withdrawn. Pneumoperitoneum was evacuated. Fascial defect closed using 0 Vicryl. Wounds approximated using 3-0 Monocryl sutures, Dermabond glue and Steri-Strips. The patient remained stable throughout the operation and left the operating room following an accurate needle and sponge count. Her , Declan, was thoroughly informed at [phone]. Condition at Discharge: Stable Final Diagnosis/Problems List acute appendicitis acute UTI Discharge Disposition: Home Discharge Instruct/Medications Diet: Regular Activity: Light activity Follow Up/Referral: Surgical Clinic Medications: Augmentin Scheduled Amoxicillin & Pot Clavulanate (Augmentin Tablet), 875 MG PO BID Discharge Statement: "Patient was advised to return to the ER or call 911 if any headaches, dizziness, shortness of breath, chest pain, abdominal pain, bleeding, fevers, or worsening of medical condition. Patient was counseled about treatment plan, medications, possible side effects, patientverbalized understanding. All questions were answered to the best of my ability. This discharge took greater then 30 minutes in planning, reviewing documentation, counseling the patient, and discussing with other team members." ASSESSMENT ASSESSMENT Assessment Date of Service: Jul 23, 2025 Billing Provider: BARON MATHIS MD Common Visit Codes: [id number] DISCH DAY >30min BARON MATHIS MD Jul 23, 2025 10:45
[2025-07-23 11:07] VITALS: TEMP 36.3
== END 2025-07-23 11:28 | disposition short-term general hospital (02) | DRG 398 ==
LOC: EEVIPCON 10:36 → ER 10:36 → EEVIPCON 17:50 → OVERFLOW 17:50 → CENTRAL 23:57
PROVIDERS: ADMIT Student in an Organized Health Care Education/Training Program; ATTEND Student in an Organized Health Care Education/Training Program
PROC: 0DTJ4ZZ Resection of Appendix, Percutaneous Endoscopic Approach (ICD-10-PCS; principal; 2025-07-21 07:33)
DX: K35.30 Acute appendicitis with localized peritonitis, without perforation or gangrene (principal); N39.0 Urinary tract infection, site not specified; K76.0 Fatty (change of) liver, not elsewhere classified; E66.9 Obesity, unspecified; Z68.30 Body mass index [BMI] 30.0-30.9, adult
CPT/HCPCS: 36415; 74176; 80048; 80053; 81001; 81025; 83690; 85025; 85610; 85730; 86850; 86900; 86901; 87081; 96361; 96365; 96375; 99291; G0378; J0131; J1100; J1885; J2003; J2250; J2405; J3490

== ENCOUNTER 2025-11-30 17:08 | Emergency (ER) | payer OTHER ==
[~2025-11-30] VITALS: Ht 149.9 cm; Wt 66.5 kg
[~2025-11-30 17:08] MED LIST: AUG875T PO
[2025-11-30 17:50] LABS: Hematocrit 42.8 % (36.0-46.0); Hemoglobin 14.5 g/dL (12.2-16.2); Mean Corpuscular Hemoglobin 30.5 pg (28.0-32.0); Mean Corpuscular Volume 90.0 fL (80.0-100.0); Nucleated Red Blood Cells % 0.1 %
[2025-11-30 18:01] LABS: Chloride 102 mmol/L (98-107); Sodium 137 mmol/L (136-145)
[2025-11-30 18:02] LABS: Anion Gap 8 (5-15); Carbon Dioxide 27 mmol/L (20-31)
[2025-11-30 18:03] LABS: Calcium 9.1 mg/dL (8.7-10.4)
[2025-11-30 18:07] LABS: BUN/Creatinine Ratio 7.0 (10.0-20.0); Glucose 89 mg/dL (74-106)
[2025-11-30 18:11] LABS: Blood Urea Nitrogen 5 mg/dL (9-23); Potassium 3.3 mmol/L (3.5-5.1)
--- NOTE | 2025-11-30 18:35 | ED.PDOC ---
GI ASSESSMENT HPI Comments 35 year-old female presents to the ED with a chief complaint of abdominal cramping for X1 month. Patient reports approximately X6 weeks gestation. Patient states she was told to come to the ED by [facility] [place]. Patient has a SHx of appendectomy. Patient has no further complaints at this time and otherwise denies symptoms of weakness, dizziness, vaginal bleeding, fever, chills, or N/V/D. Chief Complaint: Abdominal Pain Time Seen by MD: 19:01 Reviewed Notes: Medications, Allergies Allergies: Coded Allergies: NO KNOWN ALLERGIES (Unverified , 07/20/25) Home Meds Active Scripts Amoxicillin & Pot Clavulanate (AUGMENTIN TABLET) 875 Mg Tb, 875 MG PO BID for 5 Days, #10 TAB Prov:BARON MATHIS MD 07/23/25 Information Source: Patient Mode of Arrival: Ambulatory Timing: Weeks Duration: Since onset Severity: Moderate Associated sign and symptoms: Abdominal Pain Past Medical History PAST MEDICAL HISTORY: Denies Surgical History: Appendectomy PEDIATRIC ONCOLOGY NURSE History: Denies all PEDIATRIC ONCOLOGY NURSE Hx Family History Family History: Reviewed,noncontributory to illness Social History Smoker: Non-Smoker Alcohol: Occasionally Drugs: Denies Drug Use Lives In: Home Constitutional: denies: chills, diaphoresis, fatigue, fever, malaise, sweats, weakness, others EENTM: denies: blurred vision, double vision, ear bleeding, ear discharge, ear drainage, ear pain, ear ringing, eye pain, eye redness, hearing loss, mouth pain, mouth swelling, nasal discharge, nose bleeding, nose congestion, nose pain, photophobia, tearing, throat pain, throat swelling, voice changes, others Respiratory: denies: cough, hemoptysis, orthopnea, SOB at rest, shortness of breath, SOB with excertion, stridor, wheezing, others Cardiovascular: denies: chest pain, dizzy spells, diaphoresis, Dyspnea on exertion, edema, irregular heart beat, left arm pain, lightheadedness, palp itations, PND, syncope, others Gastrointestinal: reports: abdominal pain; denies: abdomen distended, blood streaked bowels, constipated, diarrhea, dysphagia, difficulty swallowing, hematemesis, melena, nausea, poor appetite, poor fluid intake, rectal bleeding, rectal pain, vomiting, others Genitourinary: denies: abnormal vagina bleeding, burning, dyspareunia, dysuria, flank pain, frequency, hematuria, incontinence, pain, , vagina disch arge, urgency, others Neurological: denies: dizziness, fainting, headache, left sided numbness, left sided weakness, numbness, paresthesia, pre-existing deficit, right sided numbness, right sided weakness, seizure, speech problems, tingling, tremors, weakness, others Musculoskeletal: denies: back pain, gout, joint pain, joint swelling, muscle pain, muscle stiffness, neck pain, others Integumetry: denies: bruises, change in color, change in hair/nails, dryness, laceration, lesions, lumps, rash, wounds, others Allergic/Immunocompromised: denies: Difficulty Healing, Frequent Infections, Hives, Itching, others Hematologic/Lymphatic: denies: anemia, blood clots, easy bleeding, easy bruising, swollen glands, others Endocrine: denies: excessive hunger, excessive sweating, excessive thirst, excessive urination, flushing, intolerance to cold, intolerance to heat, unexplained weight gain, unexplained weight loss, others Psychiatric: denies: anxiety, bipolar disorder, depression, hopeless, panic disorder, schizophrenia, sleepless, suicidal, others All Other Systems: Reviewed and Negative Physical Exam General Appearance: Normal HEENT: Normal ENT Inspection, Pharynx Normal, TMs Normal Neck: Full Range of Motion, Non-Tender, Normal, Normal Inspection Respiratory: Chest Non-Tender, Lungs Clear, No Accessory Muscle Use, No Respiratory Distress, Normal Breath Sounds Cardiovascular: No Edema, No JVD, No Murmur, No Gallop, Normal Peripheral Pulses, Regular Rate/Rhythm Breast Exam: Deferred Gastrointestinal: No Organomegaly, Non Tender, No Pulsatile Mass, Normal Bowel Sounds, Soft Genitalia: Deferred Pelvic: Deferred Rectal: Deferred Extremities: No calf tenderness, Normal capillary refill, Normal inspection, Normal range of motion, Non-tender, No pedal edema Musculoskeletal : Apperance: Normal Neurologic: Alert, 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 Was a procedure done?: No GI differential Dx Differential Diagnosis: Constipation, Gastritis/PUD, Gastroenteritis, Inflammatory BD, UTI, Urolithiasis, Dehydration, Food Poisoning, Bacterial, Parasitic, Viral, Impaction, Anemia, Kidney Stone X-Ray, Labs, Meds, VS Vital Signs Date Time Temp Pulse Resp B/P (MAP) Pulse Ox O2 Delivery O2 Flow Rate FiO2 11/30/25 20:02 98.6 75 18 117/68 (84) 98 98.6 11/30/25 17:09 97.0 95 15 134/80 99 97.0 Lab Test 11/30/25 18:08 11/30/25 17:30 Range/Units Urine Color Light-yellow Yellow Urine Clarity Clear Clear Urine pH 6.0 5.0-9.0 Urine Specific [place] 1.023 1.001-1.035 Urine Protein Negative Negative Urine Ketones 1+ H Negative Urine Blood 2+ H Negative /uL Urine Nitrite Negative Negative Urine Bilirubin Negative Negative Urine Urobilinogen Normal Negative mg/dL Urine Leukocyte Esterase Trace Negative /uL Urine RBC 22 0 - 4 /hpf Urine Microscopic WBC 2 0-5 /HPF Urine Squamous Epithelial Cells Few <5 /hpf Urine Bacteria Many H None Seen /hpf Urine Mucus Few None Seen Urine Glucose Normal Normal mg/dL White Blood Count 11.1 H 4.4-10.8 10^3/uL Red Blood Count 4.75 4.0-5.20 10^6/uL Hemoglobin 14.5 12.2-16.2 g/dL Hematocrit 42.8 36.0-46.0 % Mean Corpuscular Volume 90.0 80.0-100.0 fL Mean Corpuscular Hemoglobin 30.5 28.0-32.0 pg Mean Corpuscular Hemoglobin Concent 33.9 32.0-36.0 g/dL Red Cell Distribution Width 12.6 11.8-14.3 % Platelet Count 336 140-450 10^3/uL Mean Platelet Volume 7.2 6.9-10.8 fL Neutrophils (%) (Auto) 68.3 37.0-80.0 % Lymphocytes (%) (Auto) 22.6 10.0-50.0 % Monocytes (%) (Auto) 6.5 0.0-12.0 % Eosinophils (%) (Auto) 1.9 0.0-7.0 % Basophils (%) (Auto) 0.7 0.0-2.0 % Neutrophils # (Auto) 7.6 1.6-8.6 10 ^3/uL Lymphocytes # (Auto) 2.5 0.4-5.4 10 ^3/uL Monocytes # (Auto) 0.7 0-1.3 10 ^3/uL Eosinophils # (Auto) 0.2 0-0.8 10 ^3/uL Basophils # (Auto) 0.1 0-0.2 10 ^3/uL Nucleated Red Blood Cells 0.1 % Sodium Level 137 136-145 mmol/L Potassium Level 3.3 L 3.5-5.1 mmol/L Chloride Level 102 98-107 mmol/L Carbon Dioxide Level 27 20-31 mmol/L Anion Gap 8 5-15 Blood Urea Nitrogen 5 L 9-23 mg/dL Creatinine 0.71 0.550-1.02 mg/dL Glomerular Filtration Rate Calc 114 >90 mL/min BUN/Creatinine Ratio 7.0 L 10.0-20.0 Serum Glucose 89 74-106 mg/dL Calcium Level 9.1 8.7-10.4 mg/dL Beta HCG, Quantitative 736923.9 H 1.5-4.2 mIU/mL Time of 1ST Reevaluation: 19:00 Reevaluation 1ST: Unchanged Patient Education/Counseling: Diagnosis, Treatment Family Education/Counseling: No Family Present SEPSIS Sepsis Screen Date sepsis recognized/suspect: Nov 30, 2025 Time Sepsis recognized/suspect: 1711 Recent Procedure: No On Antibiotic Therapy: No Respiratory Rate >20: No Heart Rate >90: No Temp<36 C (96.8 F) or >38.3 C: No SBP <90 or MAP <65 mmHG: No New Acute Mental Status Change: No Is the patient on CPAP, BIPAP,: No Physician Orders Ob Ultrasound Comp Less 14wks (11/30/25 19:15) Vital Signs Date Time Temp Pulse Resp B/P (MAP) Pulse Ox O2 Delivery O2 Flow Rate FiO2 11/30/25 20:02 98.6 75 18 117/68 (84) 98 98.6 11/30/25 17:09 97.0 95 15 134/80 99 97.0 Laboratory Tests Test 11/30/25 17:30 White Blood Count 11.1 10^3/uL (4.4-10.8) H Departure 1 Departure Time of Disposition: 21:39 (Patient likely with threatened miscarriage. We will discharge patient home with outpatient follow up) Impression: Primary Impression: Threatened miscarriage Disposition: HOME / SELF CARE / HOMELESS Condition: Stable Referrals: MAGO MARIO DO Additional Instructions: You have a threatened miscarriage. Your beta hcg level today was [id number]. Your ultrasound showed an Intrauterine with cardiac activity, 6 weeks 4 days by ultrasound. Possible small subchorionic hemorrhage. 4.2 cm complex left ovarian cyst, which may represent hemorrhagic cyst versus corpus luteal cyst.. You should follow up with OBGYN within three days to recheck your blood work. If your symptoms worsen or you have any other concerns then please return to the ER. Discharged With: Self Critical Care Note Critical Care Time?: No Stability Stability form required: No Heart Score Heart Score: Heart Score Response (Comments) Value History N/A 0 EKG N/A 0 Age N/A 0 Risk Factors N/A 0 Troponin N/A 0 Total 0 I personally scribed for BAKARI TURNER MD ([email or web address]) on 11/30/25 at 18:35. Electronically submitted by Alexa Lindo ([email or web address]). I personally scribed for BAKARI TURNER MD ([email or web address]) on 11/30/25 at 18:56. Electronically submitted by Alexa Lindo ([email or web address]). BAKARI TURNER MD Nov 30, 2025 18:35
[2025-11-30 20:02] VITALS: BP 117/68; TEMP 98.6
[2025-11-30 21:05] LABS: Urine Protein, UAD Negative (Negative)
--- NOTE | 2025-11-30 21:06 | DVH ---
US OB ULTRASOUND COMP LESS 14WKS INDICATION: abdominal pain COMPARISON: None TECHNIQUE: Multiple real-time grayscale sonographic images of the pelvis with duplex Doppler color flow, spectral and M-mode analysis. FINDINGS: Transabdominal and transvaginal imaging was performed. AUA: 6 Weeks 4 Day(s) MSD (Gestational Sac): 2.2 cm CRL = 0.6 cm Heart Rate: 123 bpm Yolk Sac present: Yes Small possible subchorionic hemorrhage measuring 1.1 cm. The placenta and amniotic fluid are not evaluated based on age. Complex cystic structure in the left ovary with questionable debris /septation measuring 4.2 cm. Small volume free fluid in the pelvis. IMPRESSION: Intrauterine with cardiac activity, 6 weeks 4 days by ultrasound. Possible small subchorionic hemorrhage. 4.2 cm complex left ovarian cyst, which may represent hemorrhagic cyst versus corpus luteal cyst.
[2025-11-30 21:35] VITALS: PULSE 75; RESP 18; O2SAT 98
== END 2025-11-30 21:45 | disposition home or self-care (01) ==
LOC: ER 17:08
DX: O20.0 Threatened abortion (principal); Z3A.01 Less than 8 weeks gestation of pregnancy; Z90.49 Acquired absence of other specified parts of digestive tract
CPT/HCPCS: 36415; 76801; 80048; 81001; 84702; 85025; 86900; 86901